=== PATIENT | female | born 1985 | race Caucasian/White ===

== ENCOUNTER → 2016-10-06 | Outpatient (CLI) | payer OTHER ==
--- NOTE | 2016-10-07 15:07 | MR ---
EXAMINATION TYPE: MR cervical spine wo con DATE OF EXAM: 10/06/2016 COMPARISON: 07/19/2011 HISTORY: csp disc herniation TECHNIQUE: Multiplanar, multisequence images of the cervical spine were acquired. C2-C3: No evidence for degenerative disc disease. No disc bulge/herniation or protrusion. No Canal stenosis. Foramina are patent bilaterally. C3-C4: No evidence for degenerative disc disease. No disc bulge/herniation or protrusion. No Canal stenosis. Foramina are patent bilaterally. C4-C5: No evidence for degenerative disc disease. No disc bulge/herniation or protrusion. No Canal stenosis. Foramina are patent bilaterally. C5-C6: There is a large central and right paracentral disc herniation which results in mild mass effe ct upon the anterior margin the spinal cord. This is progressed from the previous exam.. Neural kevin aria patent. C6-C7: Large central and left paracentral disc herniation with anterior compression of the spinal cor d is progressed from the previous exam. Neural foramina remain patent. C7-T1: No evidence for degenerative disc disease. No disc bulge/herniation or protrusion. No Canal stenosis. Foramina are patent bilaterally. Cervical segments are intact. There is normal alignment. Cervical spinal cord is of normal signal. Cerebellar tonsils are low-lying in position approximately 4 mm below the foramen magnum. No tonsilla r beaking. IMPRESSION: Large disc herniation C5-6 and C6-C7 with anterior spinal cord compression which is progressed from t he previous exam. Cerebellar tonsils are low-lying in position approximately 4 mm below the foramen magnum A [place] message has been communicated to Saira Valerio MD via the [employer] Critical Result system on 10/07/2016 3:01 PM, Message ID [id number].
== END | disposition home or self-care (01) ==
LOC: RADMRIMAIN 10:40
PROVIDERS: ATTEND Psychiatry & Neurology Neurology
DX: M50.222 Other cervical disc displacement at C5-C6 level (principal); M50.223 Other cervical disc displacement at C6-C7 level; G95.29 Other cord compression
CPT/HCPCS: 72141

== ENCOUNTER 2016-10-07 18:59 | Emergency (ER) | payer OTHER ==
[2016-10-07 19:11] VITALS: RESP 18
--- NOTE | 2016-10-07 19:39 | ED ---
General Adult HPI - General Chief complaint: Neuro Symptoms/Deficit Stated complaint: neck pain Time Seen by Provider: 10/07/16 19:23 Source: patient, RN notes reviewed, old records reviewed Mode of arrival: ambulatory Limitations: no limitations - History of Present Illness Initial comments: Patient 31-year-old female who presents emergency room today with chief complaint of a herniated disc at C5-C6, C6-C7, with spinal cord compression. Patient does admit that she had a outpatient MRI performed yesterday. States she was called by her neurologist today who advised come here to the emergency room for further evaluation. Patient does admit that she's had some chronic symptoms going down into left arm with pain also going across her lower back. She does admit that she was diagnosed with a herniated disc approximately 5 years ago. Patient denies any new injury or trauma to the area. She states she 's just been having increasing pain to these areas and was seen by neurology due to some blurry vision that she was having over the last few months. Patient denies any other complaints or symptoms at this time. Patient denies any recent fever, chills, shortness of breath, chest pain, back pain, abdominal pain, nausea or vomiting, dysuria or hematuria, constipation or diarrhea, or any other complaints. - Related Data Home Medications Medication Instructions Recorded Confirmed No Known Home Medications [No 06/18/15 06/18/15 Known Home Medications] Allergies Allergy/AdvReac Type Severity Reaction Status Date / Time No Known Allergies Allergy Verified 10/07/16 19:10 Review of Systems ROS Statement: Those systems with pertinent positive or pertinent negative responses have been documented in the HPI. ROS Other: All systems not noted in ROS Statement are negative. Past Medical History Additional Past Medical History / Comment(s): herniated cervical disc, History of Any Multi-Drug Resistant Organisms: None Reported Past Surgical History: Section, Orthopedic Surgery Additional Past Surgical History / Comment(s): left hip Past Psychological History: Anxiety, Depression Smoking Status: Current every day smoker Past Alcohol Use History: None Reported Past Drug Use History: None Reported General Exam - General Exam Comments Initial Comments: General: The patient is awake and alert, in no distress, and does not appear acutely ill. Eye: Pupils are equal, round and reactive to light, extra-ocular movements are intact. No nystagmus. There is normal conjunctiva bilaterally. No signs of icterus. Ears, nose, mouth and throat: There are moist mucous membranes and no oral lesions. Neck: The neck is supple, there is no tenderness or JVD. Cardiovascular: There is a regular rate and rhythm. No murmur, rub or gallop is appreciated. Respiratory: Lungs are clear to auscultation, respirations are non-labored, breath sounds are equal. No wheezes, stridor, rales, or rhonchi. Gastrointestinal: Soft, non-distended, non-tender abdomen without masses or organomegaly noted. There is no rebound or guarding present. No CVA tenderness. Bowel sounds are unremarkable. Musculoskeletal: Normal ROM, no tenderness. Strength 5/5. Sensation intact. Pulses equal bilaterally 2+. Neurological: A&O x 3. CN II-XII intact, There are no obvious motor or sensory deficits. Coordination appears grossly intact. Speech is normal. Skin: Skin is warm and dry and no rashes or lesions are noted. Psychiatric: Cooperative, appropriate mood & affect, normal judgment. Limitations: no limitations Course Vital Signs 10/07/16 19:07 Temperature 98.3 F Pulse Rate 103 H Respiratory 18 Rate Blood Pressure 119/72 O2 Sat by Pulse 98 Oximetry Medical Decision Making - Medical Decision Making 193: Patient's MRI shows large disc herniation C5-C6 and C6-C7 with anterior spinal cord compression which progressed from previous exam. Cerebellar tonsils are aligned position approximate formula below the foramen magnum. Patient neurologically intact at this time. Patient will be transferred via EMS to [facility]. Case was discussed with will accept the patient. Disposition Clinical Impression: Cervical disc herniation, Spinal cord compression Disposition: OTHER INSTITUTION NOT DEFINED Condition: Stable Referrals: Argelia Daniel DO [Primary Care Provider] - 1-2 days Time of Disposition: 19:38 (Transfer via EMS) - Out of Hospital Transfer - Req. Specs Out of Hospital Transfer - Requested Specifics: Other Emergency Center ( [facility])
[2016-10-07 20:09] VITALS: BP 129/73; PULSE 85; TEMP 98
[2016-10-07 20:12] LABS: Basophils # (A) 0.1 k/uL (0-0.2); Basophils % (A) 1 %; CH 32.5; CHCM 34.7; Eosinophils # (A) 0.3 k/uL (0-0.7); Eosinophils % (A) 3 %; HCT 47.6 % (34.0-46.0); HDW 2.47; HGB 16.3 gm/dL (11.4-16.0); Luc # (Auto) 0.11; Luc % (Auto) 1; Lymphocytes # (A) 3.4 k/uL (1.0-4.8); Lymphocytes % (A) 33 %; MCH 32.2 pg (25.0-35.0); MCHC 34.2 g/dL (31.0-37.0); Mean Platelet Volume 6.9; Monocytes # (A) 0.4 k/uL (0-1.0); Monocytes % (A) 3 %; Neutrophils # (A) 6.2 k/uL (1.3-7.7); Neutrophils % (A) 59 %; RBC 5.06 m/uL (3.80-5.40); RDW 12.9 % (11.5-15.5); WBC 10.4 k/uL (3.8-10.6); WBC (Perox) 10.61
[2016-10-07 20:23] LABS: ALT 105 U/L (9-52); AST 57 U/L (14-36); Alkaline Phosphatase 66 U/L (38-126); Anion Gap 12 mmol/L; Blood Urea Nitrogen 12 mg/dL (7-17); Calcium 9.8 mg/dL (8.4-10.2); Carbon Dioxide 26 mmol/L (22-30); Chloride 105 mmol/L (98-107); Glucose 102 mg/dL (74-99); Non-African American GFR(MDRD) >60 (>60 ml/min/1.73 sqM); Potassium 4.3 mmol/L (3.5-5.1); Sodium 143 mmol/L (137-145); Total Bilirubin 0.9 mg/dL (0.2-1.3); Total Protein 7.7 g/dL (6.3-8.2)
[2016-10-07 20:35] LABS: Appearance,Urine Clear (Clear); Bilirubin,Urine Negative (Negative); Glucose,Urine (UA) Negative (Negative); Ketones,Urine 1+ (Negative); Leukocyte Esterase,Urine Negative (Negative); Nitrite,Urine Negative (Negative); PH, Urine 5.5 (5.0-8.0); Protein,Urine Negative (Negative); UA Billing (MACRO vs. MICRO) CHEM; Urobilinogen,Urine <2.0 mg/dL (<2.0)
== END 2016-10-07 20:38 | disposition short-term general hospital (02) ==
LOC: EC 18:59
DX: M50.222 Other cervical disc displacement at C5-C6 level (principal); G95.29 Other cord compression; F17.200 Nicotine dependence, unspecified, uncomplicated
CPT/HCPCS: 36415; 80053; 81003; 81025; 85025; 99284

== ENCOUNTER → 2017-02-09 | Outpatient (CLI) | payer OTHER ==
[2017-02-08 11:29] VITALS: BMI 37.5
[2017-02-09 14:04] VITALS: BP 139/88; PULSE 92; RESP 16
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
== END | disposition home or self-care (01) ==
LOC: PNWHC3 13:31
PROVIDERS: ATTEND Specialist
DX: M50.20 Other cervical disc displacement, unspecified cervical region (principal); M79.1 Myalgia; F17.200 Nicotine dependence, unspecified, uncomplicated; Z79.899 Other long term (current) drug therapy; Z91.040 Latex allergy status
CPT/HCPCS: 99211

== ENCOUNTER 2017-03-09 06:23 | Day surgery (SDC) | payer OTHER ==
[2017-03-07 09:14] VITALS: BMI 37.5
[~2017-03-09 06:23] MED LIST: LACTATED RINGERS 1,000 ML IV SCH
[2017-03-09] MEDS ORDERED: LIDOCAINE 1% 20 ML VIAL (10MG/ML) FOR IV START INTRADERMA ONE (06:50)
--- NOTE | 2017-03-09 07:20 | P.PCN ---
Date of Procedure: 03/09/17 Procedure(s) Performed: . PROCEDURE 1. Cervical epidural steroid injection under fluoroscopic guidance, C7-T1 2. Cervical epidurogram. PREOPERATIVE DIAGNOSIS: 1- Cervical herniated Disc Diseases POSTOPERATIVE DIAGNOSIS: : 1- Cervical herniated Disc Disease ANESTHESIA: Local anesthesia with 1% lidocaine and IV sedation with Versed 2 mg and Fentanyl 50 mcg. EBL 0 PROCEDURE INDICATION: The patient with neck pain and radiculitis unresponsive to conservative treatment consents for procedure. PROCEDURE DESCRIPTION / TECHNIQUE: The patient was seen and identified in the preoperative area. Risks, benefits, complications, including but not limited to infections ,bleeding , allergic reactions to the medications ,and not complete pain releife, and alternatives were discussed with the patient, the patient agreed to proceed with the procedure and signed the consent. Patient was taken to the OR and time out was completed. The patient was placed in the prone position on the procedure table. A pillow was placed under the patients chest to increase the cervical interlaminar space. The cervical area was prepped and draped in the usual sterile fashion. Vital signs were closely monitored during the procedure. Conscious sedation was used during the procedure to decrease patients anxiety. Using anterior-posterior fluoroscopy, the C7-T1 interlaminar space was identified and the skin over this site was marked and then infiltrated with 1% lidocaine subcutaneously. Subsequently, a 20-gauge 3-1/2-inch Tuohy epidural needle was inserted and advanced toward the epidural space by means of the `` hanging-drop technique and guided by AP and lateral fluoroscopy. The correct needle position in the epidural space was verified with the injection of 2 mL of the water soluble contrast dye [id number]-180 and observing an excellent epidurogram with the epidural spread of the dye, after negative aspiration for blood and CSF and in the absence of paresthesias. Again after negative aspiration, mixture containing 20 mg Dexamethasone and 2 ml of preservative- free normal saline injected and a washout of epidurogram was seen. Needle was withdrawn intact, skin was cleansed, and bandages were applied. Complications= none. Disposition= patient was placed in supine position and transferred to the recovery room area in stable condition and there was no evidence of upper or lower extremity motor or sensory deficit after the procedure patient was discharged from recovery room after discharge criteria met and home discharge instructions was given by the staff and patient will follow with the pain clinic in 2-4 weeks
[2017-03-09] MEDS ORDERED: IV FLUID CONTINUATION 1,000 ML IV ONE (07:25)
[2017-03-09 07:48] VITALS: BP 138/89; PULSE 77; RESP 16
== END 2017-03-09 07:59 | disposition home or self-care (01) ==
LOC: ORPAIN 06:23
PROVIDERS: ATTEND Specialist
DX: M50.20 Other cervical disc displacement, unspecified cervical region (principal); Z91.040 Latex allergy status
CPT/HCPCS: 81025; 62321; J2250; J1100; Q9965; J3010

== ENCOUNTER → 2017-05-15 | Outpatient (CLI) | payer OTHER ==
[2017-05-15 12:19] VITALS: BP 125/91; PULSE 87; RESP 16
--- NOTE | 2017-05-15 20:09 | P.PN ---
Subjective Progress Note Date: 05/15/17 This is follow-up visit for this patient with a history of severe and chronic neck pain secondary to cervical herniated disc diseases at C5-6 ,C6-7, we have done Cervical epidural steroid injections 2 , she had no benefit from it , continued to have severe neck pain , radiation to the top of the shoulder area , no numbness or tingling sensation in the upper extremities No weakness in the upper extremities , no fever or night sweats and she had no change in the bowel movement or urination patient currently on Motrin 800 mg PRN , she denies any side effect of the medication Objective - Vital Signs Vital signs: Vital Signs Temp Pulse 87 05/15/17 12:12 Resp 16 05/15/17 12:12 BP 125/91 05/15/17 12:12 Pulse Ox Intake & Output 05/15/17 05/15/17 05/16/17 06:59 18:59 06:59 Weight 108.862 kg - Exam Physical Examinations : 1-Constitutiona : Cooperative , not in acute distress . 2-HEENT : nech ; supple , no Lymphadenopathy , normal thyroid size . eyes : no ptosis , no icterus, no photophobia . ENT : normal of hearing , normal oropharynx , no Thrush . 3- Respiratory : Chest clear to auscultations Bilaterally , no wheezing , no Rhonchi . 4- Cardiovascular : regular rate and rhythem , S1 , S2 , no S3 , no S4. 5- Gastrointestinal : abdomen soft no tenderness , bowel sounds positive all four quadrents , no organomegally . 6- Genitourinary : Defferred . 7- neurologic : Cranial nerve II to XII intact , no focal neurological deffecit . 8-psychatric : alert , oriented X 3 , appropriate affect , intact judgment and insight . 9-Lymphatic : no Lymphadenopathy . 10- musculoskeltal : cervical spine = motor stregnth in the deltoid and biceps, motor stregnth biceps and the wrist extensors (C6) . motor stregnth in the triceps muscle . deep tendon reflexes normal at the biceps , normal at Brachioradialis , normal at the Triceps positive cervical facet loading test . normal Sensation in the upper extremities , Lumber spine = normal moter stegnth lower extremities ,thigh and legs .5/5 Assessment and Plan Plan: Treatment and plan= chronic ,and severe neck pain ,secondary to cervical disc herniation , and cervical spondylosis with cervical facet arthropathy Patient had no benefit from cervical epidural steroid injections 2 , Patient could benefit from diagnostic medial branch block cervical area the C4 to C7 ,and possible RFA Patient already ,had physical therapy ,without any benefit, and she tried medication without any benefit discussed with the patient, the option of reffering her,for surgical evaluations ,patient already seen spine surgeons, and he recommended cervical fusion , she refused to have surgery , Time with Patient: Less than 30
== END | disposition home or self-care (01) ==
LOC: PNWHC3 12:00
PROVIDERS: ATTEND Specialist
DX: G89.29 Other chronic pain (principal); M54.2 Cervicalgia; M50.222 Other cervical disc displacement at C5-C6 level; M50.33 Other cervical disc degeneration, cervicothoracic region; M47.812 Spondylosis without myelopathy or radiculopathy, cervical region; M46.82 Other specified inflammatory spondylopathies, cervical region; Z79.1 Long term (current) use of non-steroidal anti-inflammatories (NSAID)
CPT/HCPCS: 99211

== ENCOUNTER 2017-09-07 06:48 | Day surgery (SDC) | payer OTHER ==
[2017-09-05 09:13] VITALS: BMI 37.3
[2017-09-07 08:01] VITALS: RESP 16; TEMP 98.3
[2017-09-07] MEDS ORDERED: LACTATED RINGERS 1,000 ML IV ONE (08:07)
[2017-09-07] MEDS ORDERED: LIDOCAINE 1% 20 ML VIAL (10MG/ML) FOR IV START INTRADERMA ONE (08:07)
--- NOTE | 2017-09-07 08:35 | P.PCN ---
Description of Procedure: PREOPERATIVE DIAGNOSIS: Cervical Spondylosis with Facet Arthropathy.without myelopathy POSTOPERATIVE DIAGNOSIS: Cervical Spondylosis Facet Arthropathy. Without myelopathy PROCEDURES: Diagnostic , left C4, C5, C6 medial branch blocks, with fluoroscopic guidance ANESTHESIA: Local with 1% lidocaine; IV sedation with Versed. EBL: Minimal PROCEDURE INDICATION: The patient with neck pain secondary to cervical arthropathy unresponsive to more conservative treatments. She has undergone 2 previous cervical epidural steroid injections with no relief. She has intractable neck pain which is predominantly on the left side. This also radiates in the headaches sometimes. Recently, she has been driving a lot and noticed some numbness down her arms and into her hands. Her neck pain radiates into her shoulder blade and shoulder posteriorly as well as in her neck. PROCEDURE DESCRIPTION / TECHNIQUE: The patient was seen and identified in the preoperative area. Risks, benefits, complications, and alternatives were discussed with the patient, the patient agreed to proceed with the procedure and signed the consent. IV was started. Vital signs remained stable throughout the procedure. Patient was taken to the OR and time out was completed. The patient was placed in the prone position on the procedure table. A pillow was placed under the patients chest to increase the cervical interlaminar space. The cervical area was prepped and draped in the usual sterile fashion. Critical pause was taken. Vital signs were closely monitored during the procedure. Conscious sedation was used during the procedure to decrease patients anxiety. Using cross-table lateral fluoroscopy, the centroid of the trapezoid of the right side of the first level was identified, marked, and localized with 1% lidocaine 1 ml at each level for skin and Sub Q infiltrations . Subsequently, a 22 G spinal needle was advanced guided by fluoroscopy to the centroid of the trapezoid . [place] tip position was confirmed at the centroid of the trapezoids anteroposterior fluoroscopy. Subsequently, 2 ml of preservative- free Bupivacaine 0.5% mixed with Dexamethasone 10 mg and 0.5 ml of the mixture was injected after negative aspiration for blood and CSF. this technique was then repeated on all of the additional levels on the corresponding sides. COMPLICATIONS: No acute complications. COMMENTS: DISPOSITION / PLANS: The patient was placed in a supine position and transferred to the recovery area in a stable condition for observation and was discharged from the recovery room after meeting discharge criteria. Home discharge instructions given to the patient by the staff. The patient was reexamined prior to discharge. She can follow up in 2-4 weeks for repeat of this procedure.
[2017-09-07] MEDS ORDERED: IV FLUID CONTINUATION 1,000 ML IV ONE (08:51)
--- NOTE | 2017-09-07 09:10 | FL ---
EXAMINATION TYPE: FL guided pain mgmt statistic DATE OF EXAM: 09/07/2017 HISTORY: Flouroscopy time 5 seconds of fluoroscopy provided. IMPRESSION: 1. Fluoroscopy time.
[2017-09-07 09:18] VITALS: BP 141/83; PULSE 71
== END 2017-09-07 09:32 | disposition home or self-care (01) ==
LOC: ORPAIN 06:48
PROVIDERS: ATTEND Anesthesiology
DX: M47.22 Other spondylosis with radiculopathy, cervical region (principal); Z91.040 Latex allergy status
CPT/HCPCS: 81025; 64490; 64491; 64492; J2250; J1100; 99152